=== PATIENT | male | born 1945 | race Native Hawaiian/Other Pacific Islander ===

== ENCOUNTER 2017-03-05 07:44 | Outpatient (CLI) | payer OTHER ==
[~2017-03-05 07:44] MED LIST: ASA LOW DOSE81 MG; BENICAR HCT1 TAB PO; BYSTOLIC5 MG PO; CLOP75TA2; KEFLEX500 MG OR; LOSA50TA; NAPROSYN500 MG PO; NITR0.4S SL; PLETAL50 MG PO; POT CHLORIDE10 MEQ PO; POTASSIUM25 MEQ; RANO1000T PO; TRIAMCINOLON0.13 EX; TRIATAB14 PO; ZOCOR80 MG
[2017-03-05 08:00] LABS: PLATELET COUNT 165 K/uL (142-355)
[2017-03-05 08:08] LABS: POTASSIUM 4.1 mmol/L (3.6-5.2); SODIUM 141 mmol/L (136-145)
== END 2017-03-05 08:45 | disposition home or self-care (01) ==
LOC: LABW 07:44
PROVIDERS: Neurological Surgery
DX: Z01.812 Encounter for preprocedural laboratory examination (principal); Z79.01 Long term (current) use of anticoagulants; Z51.81 Encounter for therapeutic drug level monitoring
CPT/HCPCS: 36415; 80048; 85027

== ENCOUNTER 2017-04-04 10:30 | Outpatient (CLI) | payer OTHER | END 2017-04-04 20:05 | disposition home or self-care (01) | LOC: RAD 10:30 | DX: M79.605 Pain in left leg (principal); M25.562 Pain in left knee ==

== ENCOUNTER 2017-05-22 09:28 | Outpatient (CLI) | payer OTHER | END 2017-05-22 10:30 | disposition home or self-care (01) | LOC: RAD 09:28 | DX: J40 Bronchitis, not specified as acute or chronic (principal) ==

== ENCOUNTER 2018-01-30 07:14 | Outpatient (CLI) | payer OTHER | END 2018-01-30 19:09 | disposition home or self-care (01) | LOC: LABW 07:14 | DX: B35.1 Tinea unguium (principal) | CPT/HCPCS: 36415; 84450; 84460 ==

== ENCOUNTER 2018-03-10 07:22 | Outpatient (CLI) | payer OTHER | END 2018-03-10 23:43 | disposition home or self-care (01) | LOC: LABW 07:22 | DX: B35.1 Tinea unguium (principal) | CPT/HCPCS: 36415; 84450; 84460 ==

== ENCOUNTER 2018-03-20 15:32 | Emergency (ER) | payer OTHER ==
[~2018-03-20] VITALS: Ht 165.1 cm; Wt 77.1 kg
[2018-03-20 15:54] LABS: PLATELET COUNT 177 K/uL (142-355)
[2018-03-20 16:02] LABS: POTASSIUM 3.7 mmol/L (3.6-5.2); SODIUM 137 mmol/L (136-145)
[2018-03-20 19:30] VITALS: BP 159/86; TEMP 98
== END 2018-03-20 19:30 | disposition short-term general hospital (02) ==
LOC: ED 15:32
PROVIDERS: Family Medicine
DX: I20.8 Other forms of angina pectoris (principal)
CPT/HCPCS: 36415; 80053; 84484; 85027; 93005; 96372; 99284; J1650

== ENCOUNTER 2018-04-14 12:14 | Outpatient (CLI) | payer OTHER ==
[2018-04-14 13:50] LABS: PLATELET COUNT 321 K/uL (142-355)
[2018-04-14 14:22] LABS: POTASSIUM 3.9 mmol/L (3.6-5.2)
== END 2018-04-14 22:06 | disposition home or self-care (01) ==
LOC: LAB 12:14
PROVIDERS: Internal Medicine
DX: I25.810 Atherosclerosis of coronary artery bypass graft(s) without angina pectoris (principal); Z79.899 Other long term (current) drug therapy
CPT/HCPCS: 80048; 84439; 84443; 85027

== ENCOUNTER 2018-06-11 10:39 | Outpatient (CLI) | payer OTHER | END 2018-06-11 20:09 | disposition home or self-care (01) | LOC: LAB 10:39 | DX: R79.89 Other specified abnormal findings of blood chemistry (principal); Z79.899 Other long term (current) drug therapy | CPT/HCPCS: 84439; 84443 ==

== ENCOUNTER 2019-06-21 13:52 | Outpatient (CLI) | payer OTHER ==
[2019-06-21 14:20] LABS: PLATELET COUNT 164 K/uL (142-355)
[2019-06-21 14:40] LABS: POTASSIUM 4.2 mmol/L (3.6-5.2)
== END 2019-06-21 20:17 | disposition home or self-care (01) ==
LOC: LAB 13:52
PROVIDERS: Internal Medicine
DX: Z00.00 Encounter for general adult medical examination without abnormal findings (principal); I25.810 Atherosclerosis of coronary artery bypass graft(s) without angina pectoris; Z79.899 Other long term (current) drug therapy; Z12.5 Encounter for screening for malignant neoplasm of prostate; N40.0 Benign prostatic hyperplasia without lower urinary tract symptoms
CPT/HCPCS: 80053; 80061; 81000; 84153; 84439; 84443; 85027

== ENCOUNTER 2019-06-26 20:42 | Emergency (ER) | payer OTHER ==
[~2019-06-26] VITALS: Ht 165.1 cm; Wt 77.1 kg
[2019-06-26 21:18] LABS: PLATELET COUNT 155 K/uL (142-355)
[2019-06-26 21:26] LABS: POTASSIUM 3.8 mmol/L (3.6-5.2)
[2019-06-27 00:30] VITALS: BP 136/72; TEMP 99.1
== END 2019-06-27 00:30 | disposition home or self-care (01) ==
LOC: ED 20:42
PROVIDERS: Emergency Medicine
DX: R10.84 Generalized abdominal pain (principal); K21.9 Gastro-esophageal reflux disease without esophagitis
CPT/HCPCS: 36415; 80053; 81000; 82150; 83690; 85027; 96372; 96374; 96375; 99284; J1885; J2405; Q9963

== ENCOUNTER 2019-07-21 08:18 | Outpatient (CLI) | payer OTHER | END 2019-07-21 22:24 | disposition home or self-care (01) | LOC: US 08:18 | DX: Z13.6 Encounter for screening for cardiovascular disorders (principal); Z12.11 Encounter for screening for malignant neoplasm of colon; Z87.891 Personal history of nicotine dependence | CPT/HCPCS: G0297-TC ==

== ENCOUNTER 2019-10-25 08:56 | Outpatient (CLI) | payer OTHER ==
[2019-10-25 09:47] LABS: PLATELET COUNT 165 K/uL (142-355)
[2019-10-25 10:02] LABS: POTASSIUM 4.3 mmol/L (3.6-5.2)
== END 2019-10-25 19:06 | disposition home or self-care (01) ==
LOC: CT 08:56
PROVIDERS: Internal Medicine
DX: G44.211 Episodic tension-type headache, intractable (principal)
CPT/HCPCS: 36415; 80048; 85027; 85651

== ENCOUNTER 2019-12-29 11:30 | Outpatient (CLI) | payer OTHER ==
[2019-12-29 13:16] LABS: POTASSIUM 4.3 mmol/L (3.6-5.2)
== END 2019-12-29 20:57 | disposition home or self-care (01) ==
LOC: LAB 11:30
PROVIDERS: Internal Medicine
DX: I25.10 Atherosclerotic heart disease of native coronary artery without angina pectoris (principal)
CPT/HCPCS: 80048

== ENCOUNTER 2020-03-13 11:20 | Emergency (ER) | payer OTHER ==
[~2020-03-13] VITALS: Ht 165.1 cm; Wt 77.1 kg
[2020-03-13 11:30] VITALS: TEMP 99.1
[2020-03-13 12:09] LABS: PLATELET COUNT 166 K/uL (142-355)
[2020-03-13 12:13] LABS: POTASSIUM 3.3 mmol/L (3.6-5.2); SODIUM 138 mmol/L (136-145)
[2020-03-13 12:21] LABS: PARTIAL THROMBOPLASTIN TIME 31.6 SECONDS (24.5-33.6)
[2020-03-13 14:32] VITALS: BP 119/57
== END 2020-03-13 14:32 | disposition home or self-care (01) ==
LOC: ED 11:20
PROVIDERS: General Practice
DX: U07.1 COVID-19 (principal); E83.42 Hypomagnesemia; E87.6 Hypokalemia; R53.1 Weakness; M79.605 Pain in left leg; M79.604 Pain in right leg
CPT/HCPCS: 80053; 82550; 83735; 83880; 84484; 85027; 85610; 85730; 87635; 93005; 96365; 99284; G2023; J3475; U00003

== ENCOUNTER 2020-03-22 14:15 | Outpatient (CLI) | payer OTHER | END 2020-03-22 19:53 | disposition home or self-care (01) | LOC: LABW 14:15 | DX: U07.1 COVID-19 (principal) | CPT/HCPCS: 36415; 86769 ==

== ENCOUNTER 2020-05-03 11:45 | Outpatient (CLI) | payer OTHER | END 2020-05-03 23:27 | disposition home or self-care (01) | LOC: LABW 11:45 | DX: Z79.899 Other long term (current) drug therapy (principal) | CPT/HCPCS: 36415; 84443 ==

== ENCOUNTER 2020-06-26 14:00 | Outpatient (CLI) | payer OTHER | END 2020-06-26 23:31 | disposition home or self-care (01) | LOC: RAD 14:00 | DX: M89.8X1 Other specified disorders of bone, shoulder (principal) ==

== ENCOUNTER 2020-10-12 08:06 | Outpatient (CLI) | payer OTHER ==
[2020-10-12 08:37] LABS: POTASSIUM 3.4 mmol/L (3.6-5.2)
[2020-10-12 08:51] LABS: PLATELET COUNT 144 K/uL (142-355)
== END 2020-10-12 21:02 | disposition home or self-care (01) ==
LOC: LABW 08:06 → CT 08:30 → LABW 21:02
PROVIDERS: ATTEND Internal Medicine
DX: R10.32 Left lower quadrant pain (principal)
CPT/HCPCS: 36415; 80053; 81000; 82150; 83690; 85027; Q9963

== ENCOUNTER 2021-02-22 10:57 | Outpatient (CLI) | payer OTHER ==
[2021-02-28 15:25] LABS: PLATELET COUNT 150 K/uL (142-355)
[2021-02-28 15:26] LABS: POTASSIUM 3.3 mmol/L (3.6-5.2)
== END 2021-02-22 23:59 | disposition home or self-care (01) ==
LOC: LABW 10:57
PROVIDERS: ATTEND Internal Medicine
DX: D50.0 Iron deficiency anemia secondary to blood loss (chronic) (principal)
CPT/HCPCS: 36415; 80053; 85027

== ENCOUNTER 2021-03-13 08:27 | Outpatient (CLI) | payer OTHER ==
[2021-03-13 09:03] LABS: PLATELET COUNT 151 K/uL (142-355)
== END 2021-03-13 21:33 | disposition home or self-care (01) ==
LOC: LABW 08:27
PROVIDERS: ATTEND Internal Medicine
DX: K92.1 Melena (principal)
CPT/HCPCS: 36415; 85027; 85044

== ENCOUNTER 2021-03-28 14:08 | Outpatient (CLI) | payer OTHER | END 2021-03-28 18:42 | disposition home or self-care (01) | LOC: US 14:08 | PROVIDERS: ATTEND Internal Medicine | DX: R60.0 Localized edema (principal) ==

== ENCOUNTER 2021-07-13 09:35 | Outpatient (CLI) | payer OTHER ==
[2021-07-13 09:51] LABS: PLATELET COUNT 173 K/uL (142-355)
[2021-07-13 10:14] LABS: POTASSIUM 3.7 mmol/L (3.6-5.2)
== END 2021-07-13 20:15 | disposition home or self-care (01) ==
LOC: LABW 09:35
PROVIDERS: ATTEND Internal Medicine
DX: I25.10 Atherosclerotic heart disease of native coronary artery without angina pectoris (principal); N40.0 Benign prostatic hyperplasia without lower urinary tract symptoms; D68.8 Other specified coagulation defects; I10 Essential (primary) hypertension
CPT/HCPCS: 36415; 80053; 80061; 81000; 84439; 84443; 85027

== ENCOUNTER 2021-10-12 12:17 | Outpatient (CLI) | payer OTHER ==
[2021-10-12 12:34] LABS: PLATELET COUNT 165 K/uL (142-355)
[2021-10-12 12:46] LABS: POTASSIUM 3.1 mmol/L (3.6-5.2)
== END 2021-10-12 20:04 | disposition home or self-care (01) ==
LOC: LAB 12:17
PROVIDERS: ATTEND Internal Medicine
DX: D50.0 Iron deficiency anemia secondary to blood loss (chronic) (principal); I25.10 Atherosclerotic heart disease of native coronary artery without angina pectoris; Z79.899 Other long term (current) drug therapy; I10 Essential (primary) hypertension
CPT/HCPCS: 80053; 80061; 84439; 84443; 85027

== ENCOUNTER 2021-10-24 08:36 | Outpatient (CLI) | payer OTHER ==
[2021-10-24 09:07] LABS: PLATELET COUNT 166 K/uL (142-355)
[2021-10-24 09:25] LABS: POTASSIUM 4.1 mmol/L (3.6-5.2)
== END 2021-10-24 19:23 | disposition home or self-care (01) ==
LOC: LABW 08:36
PROVIDERS: ATTEND Internal Medicine
DX: D64.89 Other specified anemias (principal); I42.8 Other cardiomyopathies
CPT/HCPCS: 36415; 80053; 82272; 83735; 83880; 85027

== ENCOUNTER 2021-10-25 11:48 | Outpatient (CLI) | payer OTHER | END 2021-10-25 19:21 | disposition home or self-care (01) | LOC: LAB 11:48 | PROVIDERS: ATTEND Internal Medicine | DX: D64.89 Other specified anemias (principal) | CPT/HCPCS: 82272 ==

== ENCOUNTER 2021-10-26 10:38 | Outpatient (CLI) | payer OTHER | END 2021-10-26 20:02 | disposition home or self-care (01) | LOC: LAB 10:38 | PROVIDERS: ATTEND Internal Medicine | DX: D64.89 Other specified anemias (principal) | CPT/HCPCS: 82270 ==

== ENCOUNTER 2022-04-03 09:59 | Outpatient (CLI) | payer OTHER | END 2022-04-03 19:22 | disposition home or self-care (01) | LOC: LABW 09:59 | PROVIDERS: ATTEND Physician Assistant | DX: R60.0 Localized edema (principal) | CPT/HCPCS: 36415; 80048; 83880 ==

== ENCOUNTER 2022-04-10 09:50 | Outpatient (CLI) | payer OTHER ==
[2022-04-10 10:19] LABS: POTASSIUM 3.4 mmol/L (3.6-5.2)
== END 2022-04-10 19:59 | disposition home or self-care (01) ==
LOC: LABW 09:50
PROVIDERS: ATTEND Physician Assistant
DX: I42.8 Other cardiomyopathies (principal); Z79.899 Other long term (current) drug therapy
CPT/HCPCS: 36415; 80053; 83735; 83880

== ENCOUNTER 2022-05-02 15:32 | Outpatient (CLI) | payer OTHER ==
[2022-05-02 15:38] LABS: PLATELET COUNT 143 K/uL (142-355)
[2022-05-02 15:59] LABS: POTASSIUM 3.6 mmol/L (3.6-5.2)
== END 2022-05-02 21:05 | disposition home or self-care (01) ==
LOC: LAB 15:32
PROVIDERS: ATTEND Internal Medicine
DX: R55 Syncope and collapse (principal); Z79.899 Other long term (current) drug therapy
CPT/HCPCS: 80053; 83735; 84443; 85027

== ENCOUNTER 2022-05-06 13:49 | Outpatient (CLI) | payer OTHER ==
[2022-05-06 14:32] LABS: PLATELET COUNT 162 K/uL (142-355)
== END 2022-05-06 19:23 | disposition home or self-care (01) ==
LOC: LAB 13:49
PROVIDERS: ATTEND Internal Medicine
DX: D64.89 Other specified anemias (principal); E87.6 Hypokalemia; Z79.899 Other long term (current) drug therapy
CPT/HCPCS: 84132; 85027

== ENCOUNTER 2022-05-08 07:29 | Outpatient (CLI) | payer OTHER ==
[~2022-05-08] VITALS: Ht 165.1 cm; Wt 77.1 kg
[2022-05-08] VITALS (8 sets, daily range): BP systolic 142–158; BP diastolic 48–79; TEMP 97.7–98.3
== END 2022-05-08 18:47 | disposition home or self-care (01) ==
LOC: INF 07:29
PROVIDERS: ATTEND Internal Medicine
PROC: 30233P1 Transfusion of Nonautologous Frozen Red Cells into Peripheral Vein, Percutaneous Approach (ICD-10-PCS; principal; 2022-05-08)
DX: D64.9 Anemia, unspecified (principal)
CPT/HCPCS: 36430; 86850; 86900; 86901; 86922; P9016

== ENCOUNTER 2022-05-09 09:08 | Outpatient (CLI) | payer OTHER ==
[2022-05-09 09:28] LABS: PLATELET COUNT 146 K/uL (142-355)
== END 2022-05-09 20:50 | disposition home or self-care (01) ==
LOC: LABW 09:08
PROVIDERS: ATTEND Internal Medicine
DX: D64.89 Other specified anemias (principal)
CPT/HCPCS: 36415; 85027; 85044

== ENCOUNTER 2022-05-22 11:34 | Outpatient (CLI) | payer OTHER ==
[2022-05-22 11:47] LABS: PLATELET COUNT 156 K/uL (142-355)
== END 2022-05-22 23:25 | disposition home or self-care (01) ==
LOC: LAB 11:34
PROVIDERS: ATTEND Internal Medicine
DX: D50.0 Iron deficiency anemia secondary to blood loss (chronic) (principal); E87.6 Hypokalemia
CPT/HCPCS: 84132; 85027

== ENCOUNTER 2022-06-18 11:16 | Outpatient (CLI) | payer OTHER ==
[2022-06-18 11:44] LABS: PLATELET COUNT 241 K/uL (142-355)
== END 2022-06-18 18:57 | disposition home or self-care (01) ==
LOC: LAB 11:16
PROVIDERS: ATTEND Internal Medicine
DX: Z45.2 Encounter for adjustment and management of vascular access device (principal); N39.0 Urinary tract infection, site not specified; A09 Infectious gastroenteritis and colitis, unspecified; J18.1 Lobar pneumonia, unspecified organism; I25.10 Atherosclerotic heart disease of native coronary artery without angina pectoris; I10 Essential (primary) hypertension; R78.81 Bacteremia; Z79.2 Long term (current) use of antibiotics
CPT/HCPCS: 80053; 85027

== ENCOUNTER 2022-06-25 12:24 | Outpatient (CLI) | payer OTHER ==
[2022-06-25 12:40] LABS: PLATELET COUNT 180 K/uL (142-355)
[2022-06-25 12:50] LABS: POTASSIUM 3.9 mmol/L (3.6-5.2)
== END 2022-06-25 17:00 | disposition home or self-care (01) ==
LOC: LAB 12:24
PROVIDERS: ATTEND Internal Medicine
DX: Z45.2 Encounter for adjustment and management of vascular access device (principal); N39.0 Urinary tract infection, site not specified; A09 Infectious gastroenteritis and colitis, unspecified; J18.1 Lobar pneumonia, unspecified organism; I25.10 Atherosclerotic heart disease of native coronary artery without angina pectoris; I10 Essential (primary) hypertension; R78.81 Bacteremia; Z79.2 Long term (current) use of antibiotics
CPT/HCPCS: 80053; 85027; 87070

== ENCOUNTER 2022-06-26 18:47 | Emergency (ER) | payer OTHER ==
[~2022-06-26] VITALS: Ht 165.1 cm; Wt 77.1 kg
[2022-06-26 19:55] LABS: PLATELET COUNT 197 K/uL (142-355)
[2022-06-26 20:36] VITALS: BP 170/70; TEMP 98.5
== END 2022-06-26 20:36 | disposition home or self-care (01) ==
LOC: ED 18:47
PROVIDERS: Emergency Medicine Emergency Medical Services
DX: T81.41XD Infection following a procedure, superficial incisional surgical site, subsequent encounter (principal); I25.10 Atherosclerotic heart disease of native coronary artery without angina pectoris
CPT/HCPCS: 36415; 85027; 85610; 99283

== ENCOUNTER 2022-07-02 12:17 | Outpatient (CLI) | payer OTHER ==
[2022-07-02 13:02] LABS: PLATELET COUNT 235 K/uL (142-355)
== END 2022-07-02 19:16 | disposition home or self-care (01) ==
LOC: LAB 12:17
PROVIDERS: ATTEND Internal Medicine
DX: D64.89 Other specified anemias (principal)
CPT/HCPCS: 85027

== ENCOUNTER 2022-07-22 14:59 | Outpatient (CLI) | payer OTHER ==
[2022-07-22 15:08] LABS: PLATELET COUNT 158 K/uL (142-355)
== END 2022-07-22 20:10 | disposition home or self-care (01) ==
LOC: LAB 14:59
PROVIDERS: ATTEND Internal Medicine
DX: D50.0 Iron deficiency anemia secondary to blood loss (chronic) (principal)
CPT/HCPCS: 85027

== ENCOUNTER 2022-07-24 07:49 | Outpatient (CLI) | payer OTHER ==
[2022-07-24] VITALS (7 sets, daily range): BP systolic 156–162; BP diastolic 68–77; TEMP 97.4–97.9
[~2022-07-24] VITALS: Ht 170.2 cm; Wt 79.4 kg
== END 2022-07-24 19:33 | disposition home or self-care (01) ==
LOC: INF 07:49
PROVIDERS: ATTEND Internal Medicine
PROC: 30233N1 Transfusion of Nonautologous Red Blood Cells into Peripheral Vein, Percutaneous Approach (ICD-10-PCS; principal; 2022-07-24)
DX: D64.9 Anemia, unspecified (principal)
CPT/HCPCS: 36430; 86850; 86900; 86901; 86922; P9016

== ENCOUNTER 2022-08-21 11:09 | Outpatient (CLI) | payer OTHER ==
[2022-08-21 11:51] LABS: PLATELET COUNT 240 K/uL (142-355)
== END 2022-08-21 19:00 | disposition home or self-care (01) ==
LOC: LABW 11:09
PROVIDERS: ATTEND Internal Medicine Gastroenterology
DX: R94.5 Abnormal results of liver function studies (principal); D64.9 Anemia, unspecified; Z79.899 Other long term (current) drug therapy
CPT/HCPCS: 36415; 80074; 80076; 82103; 82172; 82247; 82390; 82465; 82525; 82728; 82947; 82977; 83010; 83516; 83540; 83550; 83883; 84450; 84460; 84466; 84478; 85027; 85610; 86038

== ENCOUNTER 2023-01-06 13:41 | Outpatient (CLI) | payer OTHER ==
[2023-01-06 14:03] LABS: PLATELET COUNT 157 K/uL (142-355)
== END 2023-01-06 20:43 | disposition home or self-care (01) ==
LOC: LAB 13:41
PROVIDERS: ATTEND Internal Medicine
DX: D64.89 Other specified anemias (principal)
CPT/HCPCS: 85027

== ENCOUNTER 2023-02-04 11:29 | Outpatient (CLI) | payer OTHER ==
[2023-02-04 12:01] LABS: PLATELET COUNT 155 K/uL (142-355)
== END 2023-02-04 19:21 | disposition home or self-care (01) ==
LOC: LAB 11:29
PROVIDERS: ATTEND Internal Medicine
DX: D64.89 Other specified anemias (principal)
CPT/HCPCS: 85027

== ENCOUNTER 2023-02-11 09:06 | Outpatient (CLI) | payer OTHER | END 2023-02-11 19:06 | disposition home or self-care (01) | LOC: RAD 09:06 | PROVIDERS: ATTEND Internal Medicine | DX: M51.9 Unspecified thoracic, thoracolumbar and lumbosacral intervertebral disc disorder (principal) ==

== ENCOUNTER 2023-03-28 08:43 | Outpatient (CLI) | payer OTHER | END 2023-03-28 19:11 | disposition home or self-care (01) | LOC: RAD 08:43 | PROVIDERS: ATTEND Internal Medicine | DX: M53.3 Sacrococcygeal disorders, not elsewhere classified (principal); M25.552 Pain in left hip ==